=== PATIENT | female | born 1965 | race African-American/Black ===

== ENCOUNTER 2019-11-15 10:05 | Emergency (ER) | payer BC ==
[~2019-11-15] VITALS: Ht 170.2 cm; Wt 100.0 kg
[2019-11-15 10:14] VITALS: TEMP 98.3
[2019-11-15 10:57] LABS: BASO % 0.7 % (0.0-2.0); GRAN # 2.3 (1.4-6.5); GRAN % 51.9 % (42.2-75.2); HEMOGLOBIN 11.8 g/dl (12.5-16.0); LYMPH # 1.7 (1.2-3.4); LYMPH % 39.1 % (20.0-51.0); MEAN CELL VOLUME 86 fl (80.0-100.0); MEAN CORPUSCULAR HEMOGLOBIN 28 pg (27.0-31.0); MEAN CORPUSCULAR HGB CONC 32 g/dl (33.0-37.0); MEAN PLATELET VOLUME 10.3 fl (7.4-10.4); MONO # 0.4 (0.1-0.6); MONO % 7.9 % (1.7-9.3); PLATELET COUNT 257 K/mm3 (130-400); RED BLOOD COUNT 4.24 M/mm3 (4.10-5.30); REDCELL DISTRIBUTION WIDTH-CV 14.6 % (11.5-14.5)
[2019-11-15 10:59] LABS: HEMATOCRIT 36.4 % (37.0-47.0)
[2019-11-15 11:02] LABS: ALANINE AMINOTRANSFERASE 16 U/L (9-52); ALBUMIN 4.4 gm/dL (3.5-5.0); ALKALINE PHOSPHATASE 72 U/L (50-136); ANION GAP 10 mmol/L (7-16); AST,SGOT 26 U/L (15-37); BILIRUBIN,TOTAL 0.3 mg/dL (0.0-1.0); BLOOD UREA NITROGEN 15 mg/dL (7-17); CALCIUM 9.1 mg/dL (8.4-10.2); CARBON DIOXIDE 25 mmol/L (22-30); CHLORIDE 107 mmol/L (98-107); CREATININE, serum 0.69 (0.52-1.25); GLUCOSE 161 mg/dL (74-106); LIPASE 53 U/L (23-300); SODIUM 142 mmol/L (137-145); TOTAL PROTEIN 7.7 gm/dL (6.4-8.2)
[2019-11-15 11:05] LABS: INR 0.9 (0.8-3.0); PROTHROMBIN TIME 10.8 SECONDS (9.7-12.8)
[2019-11-15 11:17] LABS: TROPONIN-I < 0.012 ng/mL (0.000-0.035)
[2019-11-15] MEDS ORDERED: ALDACTONE 25MG25 M1 PO (14:15)
[2019-11-15] MEDS ORDERED: XALATAN EYE DROPS OU (14:16)
[2019-11-15] MEDS ORDERED: PRAVACHOL 40MG40 MG PO (14:16)
[2019-11-15] MEDS ORDERED: GLUCOPHAGE500 MG/TAB PO (14:17)
[2019-11-15] MEDS ORDERED: PRINIVIL20 MG PO (14:17)
[2019-11-15] MEDS ORDERED: VITAMIN B COMPL1 SGL PO (14:18)
[2019-11-15] MEDS ORDERED: ASPIRIN 81M81 MG/TA2 PO (14:18)
[2019-11-15] MEDS ORDERED: OMEGA-3 1000 MG1 CAP PO (14:18)
[2019-11-15] MEDS ORDERED: MULTI VITAMINS1 TAB PO (14:18)
[2019-11-15] MEDS ORDERED: TOPROL XL 50MG50 MG PO (14:24)
[2019-11-15 16:14] VITALS: BP 168/91; PULSE 73
== END 2019-11-15 16:20 | disposition home or self-care (01) ==
LOC: COL.ER 10:05
PROVIDERS: Emergency Medicine
DX: R07.89 Other chest pain (principal); I10 Essential (primary) hypertension; E11.9 Type 2 diabetes mellitus without complications; Z79.84 Long term (current) use of oral hypoglycemic drugs
CPT/HCPCS: J7030; Q9967

== ENCOUNTER → 2023-08-17 | Outpatient (CLI) | payer BC ==
[~2023-08-17] MED LIST: ALDACTONE 25MG25 M1 PO; ASPIRIN 81M81 MG/TA2 PO; GLUCOPHAGE500 MG/TAB PO; MULTI VITAMINS1 TAB PO; OMEGA-3 1000 MG1 CAP PO; PRAVACHOL 40MG40 MG PO; PRINIVIL20 MG PO; TOPROL XL 50MG50 MG PO; VITAMIN B COMPL1 SGL PO; XALATAN EYE DROPS OU
== END ==
LOC: MC.RAD 09:24
DX: Z12.31 Encounter for screening mammogram for malignant neoplasm of breast (principal)